=== PATIENT | male | born 1960 | race Hispanic/Latino ===

== ENCOUNTER 2019-11-18 08:47 | Emergency (ER) | payer OTHER ==
[2019-11-18] MEDS ORDERED: Adacel (T-DAP) 0.5 ML SYRINGE ONE (09:05)
--- NOTE | 2019-11-18 09:16 | RAD ---
EXAM: 3 views of the left index finger HISTORY: Avulsion injury to the tip of the index finger COMPARISON: None FINDINGS: There is no evidence of acute fracture or dislocation. No soft tissue swelling is seen. No degenerative changes are present. No radiopaque foreign body is seen. IMPRESSION: No evidence of acute osseous abnormality.
[2019-11-18] MEDS ORDERED: Bacitracin 1 PK ONE (10:22)
== END 2019-11-18 10:45 | disposition home or self-care (01) ==
LOC: ERS 08:47
DX: S61.301A Unspecified open wound of left index finger with damage to nail, initial encounter (principal); E11.9 Type 2 diabetes mellitus without complications; I10 Essential (primary) hypertension; Z79.84 Long term (current) use of oral hypoglycemic drugs; Z79.899 Other long term (current) drug therapy; W31.89XA Contact with other specified machinery, initial encounter; Y99.0 Civilian activity done for income or pay
CPT/HCPCS: 90471; 90715

== ENCOUNTER 2020-05-25 22:27 | Observation (INO) | payer OTHER ==
--- NOTE | 2020-05-25 22:45 | RAD ---
EXAM: CHEST ONE VIEW HISTORY: Left-sided chest pain. COMPARISON: 01/08/2007. FINDINGS: The cardiac silhouette and pulmonary vasculature are within normal limits. There is an area of increa sed density overlying the right suprahilar region. This may be related to asymmetric irregularity of the first costochondral junction, but a lesion in this region cannot be entirely excluded. Linear densities are again seen at the left lung base likely related to scarring. Degenerative changes are present in the spine. IMPRESSION: Area of mild increased density in the right suprahilar region which is felt to be related to asymmetr ic prominence of the first anterior costochondral junction, but overlying lesion cannot be entirely excluded. Follow-up PA and lateral chest x-ray is recommended.
[2020-05-25] MEDS ORDERED: Nitroglycerin 2% Ointment 1 INCH/1 GM Packet ONE ×2 (23:08→23:10)
[2020-05-25] MEDS ORDERED: Nitroglycerin 0.4 MG TAB 1 EACH ONE (23:08)
[2020-05-25] MEDS ORDERED: Labetalol HCl 100 MG/20 ML VIAL ONE (23:10)
[2020-05-25 23:29] LABS: Hemoglobin 17.9 g/dL (14.0-18.0); Mean Corpuscular HGB CONC 35.5 g/dL (32.0-36.0); Mean Corpuscular Hemoglobin 33.5 pg (27.0-31.0); Mean Corpuscular Volume 94.5 fL (78.0-98.0); RBC Distribution Width 11.6 % (11.5-14.5); Red Blood Cell (RBC) Count 5.34 mill/uL (4.70-6.10); White Blood Cell (WBC) Count 3.9 thou/uL (4.8-10.8)
[2020-05-25 23:41] LABS: #Eosinphils 0.1 thou/uL (0.0-0.7); #Lymphocytes 1.2 thou/uL (1.20-3.40); #Monocytes 0.4 thou/uL (0.11-0.59); #Neutrophils 2.2 thou/uL (1.40-6.50); %Basophils 0.5 % (0.0-1.0); %Lymphocytes 29.3 % (21.0-51.0); %Monocytes 10.5 % (0.0-10.0); %Neutrophils 56.6 % (42.0-75.0); Mean Platelet Volume 6.5 fL (7.4-10.4); Platelet Count 113 thou/uL (130-400); Platelet Morphology Comment Appears Decreased
[2020-05-25 23:49] LABS: ALT (SGPT) 41 U/L (8-55); AST (SGOT) 42 U/L (5-34); Albumin 4.3 g/dL (3.5-5.0); Alkaline Phosphatase 141 U/L (40-110); Anion Gap 15 mmol/L (10-20); BUN (Urea Nitrogen) 8 mg/dL (8.4-25.7); Bilirubin, Total 1.1 mg/dL (0.2-1.2); CK (CPK) 171 U/L (30-200); Calc. Creatinine Clearance 0 mL/min (70-130); Calcium 9.9 mg/dL (7.8-10.44); Carbon Dioxide 30 mmol/L (22-29); Chloride 95 mmol/L (98-107); Globulin 4.6 g/dL (2.4-3.5); Glucose 255 mg/dL (70-105); Potassium 3.7 mmol/L (3.5-5.1); Protein, Total 8.9 g/dL (6.0-8.3); Sodium 136 mmol/L (136-145)
[2020-05-26] MEDS ORDERED: Aspirin 325 MG TAB ONE (00:12)
--- NOTE | 2020-05-26 00:19 | PDOC.HHP ---
Hospitalist HPI - History of Present Illness History of Present Illness: ADMISSION DATE: 05/26/2020 TIME OF ASSESSMENT:0030 PRIMARY CARE PHYSICIAN: None CHIEF COMPLAINT: Chest pain HPI: The patient is a 60-year-old male with past medical history significant for diabetes mellitus type 2 and hypertension. Patient has not had any healthcare in the past 4 years. He states that he is awake this morning at 0300 and began to have left-sided chest pain. He denies shortness of breath, diaphoresis, fever, contact with sick persons. He states that when the pain would occur he would walk around to help relieve it. No medications were tried at home. The pain waxed and waned throughout the day and felt like a stabbing pressure to his left side chest. Patient states that when he got to the ER and his blood pressure began to come down after medications the chest pain went away completely. He states that he has no pain at this time. ED COURSE: Vital Signs: VITAL SIGNS [facility] May 25, 2020 22:28 WERNER Salter Catherine BP: 225/106, Pulse: 83, Resp: 18, Temp: 98.4 (Oral), Pain: 5, O2 sat: 99 on (Room Air), Time: 05/25/2020 22:28. VITAL SIGNS [facility] May 25, 2020 23:15 WERNER Barraza Shelley BP: 196/90 (Manual BP), Pulse: 81, Resp: 25, Pain: 5, O2 sat: 98 on (Room Air), Time: 05/25/2020 23:15. VITAL SIGNS [facility] May 25, 2020 23:21 WERNER Barraza Shelley BP: 160/94, MAP: 116, Pulse: 93, Resp: 22, Pain: 2, O2 sat: 96 on (Room Air), Time: 05/25/2020 23:21. VITAL SIGNS [facility] May 25, 2020 23:25 WERNER Barraza Shelley BP: 134/84, MAP: 102, Pulse: 82, Resp: 25, Pain: 2, O2 sat: 96 on (Room Air), Time: 05/25/2020 23:25. VITAL SIGNS FriMay 26, 2020 00:00 WERNER Barraza Shelley BP: 149/90, MAP: 109, Pulse: 76, Resp: 20, Temp: 98.7 (Oral), Pain: 0, O2 sat: 96 on (Room Air), Time: 05/26/2020 00:00. Today in the ER they completed lab work, EKG, chest x-ray. He was administered aspirin 325 mg oral, labetalol 20 mg IV, nitro 1 inch topical, nitro 0.4 mg sublingual. PAST MEDICAL HISTORY: Diabetes mellitus type 2, hypertension PAST SURGICAL HISTORY: No surgical history SOCIAL HISTORY: Patient is a daily drinker of 6-8 beers per day. Denies drug use, denies tobacco use. FAMILY HISTORY: Denies significant family history ALLERGIES: No known drug allergies CURRENT MEDICATIONS: No current home medications Hospitalist ROS - Review of Systems Cardiovascular: reports: chest pain All other systems reviewed; all pertinent +/- noted in HPI/Subj - Exam General Appearance: NAD, awake alert Eye: PERRL Neck: supple Heart: RRR, no murmur, no gallops, no rubs, normal peripheral pulses Respiratory: CTAB, no wheezes, no rales, no ronchi, normal chest expansion Gastrointestinal: soft, non-tender, non-distended, normal bowel sounds Extremities: no edema Neurological: no focal deficits Musculoskeletal: normal tone, normal strength, no muscle wasting Psychiatric: normal affect, normal behavior, A&O x 3 Hospitalist Results - Labs Result Diagrams: 05/25/20 23:11 05/25/20 23:11 Lab results: WBC 3.9 thou/uL (4.8-10.8) L 05/25/20 23:11 Hgb 17.9 g/dL (14.0-18.0) 05/25/20 23:11 Hct 50.5 % (42.0-52.0) 05/25/20 23:11 MCV 94.5 fL (78.0-98.0) 05/25/20 23:11 Plt Count 113 thou/uL (130-400) L 05/25/20 23:11 Neutrophils % 56.6 % (42.0-75.0) 05/25/20 23:11 Sodium 136 mmol/L (136-145) 05/25/20 23:11 Potassium 3.7 mmol/L (3.5-5.1) 05/25/20 23:11 Chloride 95 mmol/L (98-107) L 05/25/20 23:11 Carbon Dioxide 30 mmol/L (22-29) H 12/31/20 23:11 BUN 8 mg/dL (8.4-25.7) L 05/25/20 23:11 Creatinine 0.84 mg/dL (0.7-1.3) 05/25/20 23:11 Glucose 255 mg/dL (70-105) H 05/25/20 23:11 Calcium 9.9 mg/dL (7.8-10.44) 05/25/20 23:11 Total Bilirubin 1.1 mg/dL (0.2-1.2) 05/25/20 23:11 AST 42 U/L (5-34) H 05/25/20 23:11 ALT 41 U/L (8-55) 05/25/20 23:11 Alkaline Phosphatase 141 U/L (40-110) H 05/25/20 23:11 Creatine Kinase 171 U/L (30-200) 05/25/20 23:11 Troponin I Less than 0.010 ng/mL (< 0.028) 05/25/20 23:11 B-Natriuretic Peptide 12.0 pg/mL (0-100) 05/25/20 23:11 Serum Total Protein 8.9 g/dL (6.0-8.3) H 05/25/20 23:11 Albumin 4.3 g/dL (3.5-5.0) 05/25/20 23:11 - EKG Interpretation EKG: Sinus rhythm 75 bpm - Radiology Interpretation Chest x-ray Status: image reviewed by me, report reviewed by me Additional Comment: IMPRESSION: Area of mild increased density in the right suprahilar region which is felt to be related to asymmetric prominence of the first anterior costochondral junction, but overlying lesion cannot be entirely excluded. Follow-up PA and lateral chest x-ray is recommended. Hospitalist H&P A/P - Plan Plan: Chest pain Monitor on telemetry Continue to trend troponins If troponins remain negative plan for stress test in a.m. TSH and magnesium level in a.m. Hypertensive emergency Continue monitor vital signs every 4 hours As needed antihypertensives available Diabetes mellitus type 2 Hemoglobin A1c Monitor Accu-Cheks AC at bedtime Daily alcohol use Initiate ASE protocol VTE prophylaxis in place with SCDs CODE STATUS: Full Patient surrogate decision-maker is his , Dulce Maria Kraft
[2020-05-26 02:08] LABS: Troponin I 0.019 ng/mL (< 0.028)
[2020-05-26 02:46] VITALS: BMI 26.6
[2020-05-26 04:43] LABS: Troponin I 0.021 ng/mL (< 0.028)
[2020-05-26] MEDS ORDERED: Nitroglycerin 2% Ointment 1 INCH/1 GM Packet TOP SCH (06:00)
[2020-05-26] MEDS ORDERED: hydrALAZINE 20 MG/ML VIAL SLOW IVP PRN (07:55)
[2020-05-26] MEDS ORDERED: Acetaminophen 500 MG TAB PO PRN (07:55)
[2020-05-26] MEDS ORDERED: Labetalol HCl 100 MG/20 ML VIAL SLOW IVP PRN (07:55)
[2020-05-26] MEDS ORDERED: Aspirin 325 MG TAB PO SCH (08:00)
[2020-05-26] MEDS ORDERED: Dextrose 5% in Water 1,000 ML IV PRN (08:14)
[2020-05-26] MEDS ORDERED: HumaLOG 300 UNITS/3 ML VIAL SC PRN (08:14)
[2020-05-26] MEDS ORDERED: Dextrose 50% Abboject 50 ML SYRINGE SLOW IVP PRN (08:14)
[2020-05-26 08:56] LABS: SARS-CoV-2 MS2 Positive; SARS-CoV-2 N Gene Negative; SARS-CoV-2 S Gene Negative; SARS-CoV-2 by NAA Not Detected (NotDetected); SARS-CoV-2 orf1ab Negative
[2020-05-26] MEDS ORDERED: Lisinopril 10 MG TAB PO SCH (09:00)
[2020-05-26] MEDS ORDERED: FLU VACC QS2020-21(6MOS UP)/PF 60 MCG/0.5 ML SYRINGE IM ONE (09:00)
[2020-05-26] MEDS ORDERED: Aspirin 325 mg Enteric Coated Tablet PO SCH (09:00)
[2020-05-26] MEDS: Insulin Glargine 15 UNITS in Pre-Filled Syringe 1 EACH SC SCH ×2 (09:59→13:40)
--- NOTE | 2020-05-26 15:26 | NM ---
EXAM: NM Cardiac Stress W EF WF PROVIDED CLINICAL HISTORY: Chest pain. Hypertension and diabetes mellitus. COMPARISON: None FINDINGS: This examination was performed as an exercise stress myocardial perfusion study following the routine Caden protocol. The resting heart rate is 74 bpm with maximal heart rate of 157 bpm which is 96% of the maximal predicted affective heart rate. There is normal uptake and distribution of radiotracer seen throughout the left ventricular myocardiu m on the stress acquisition. No reversible defect is identified. Quantitative analysis shows no significant reversible defect. Gated images demonstrate normal ventricular wall thickening. Mild hypo kinesis at the septum is present. The calculated left ventricular ejection fraction is 65%. IMPRESSION: 1. Normal myocardial perfusion study without evidence of a reversible defect seen to suggest ischemia . 2. Mild hypokinesis at the septum. 3. LVEF of 65%.
--- NOTE | 2020-05-26 16:50 | DIS ---
DATE OF ADMISSION: 05/26/2020 DATE OF DISCHARGE: 05/26/2020 DISCHARGE DISPOSITION: To home. PRIMARY DISCHARGE DIAGNOSIS: Chest pain, which is noncardiac. SECONDARY DISCHARGE DIAGNOSIS: 1. Hypertensive urgency, resolved. 2. Diabetes mellitus type 2, uncontrolled due to noncompliance with medication. PROCEDURES DONE DURING HOSPITALIZATION: The patient had a chest x-ray done, which showed increased density in the right suprahilar region, which is felt to be related to asymmetric prominence of the first anterior costochondral junction. No acute infiltrate was seen. Nuclear stress test done, showed no reversible ischemia. Ejection fraction of 65%. H and H 17 and 50, platelet count is 113, MCV is 94. BUN 8, creatinine 0.8. Troponin x3 negative. BNP 12. Serum glucose 255. COVID-19 PCR not detected. DISCHARGE MEDICATIONS: 1. Glipizide 5 mg p.o. daily. 2. Metoprolol 25 mg p.o. twice daily. 3. Lisinopril 10 mg p.o. daily. DISCHARGE PLAN: The patient is advised to check fingerstick glucose daily, blood pressure and pulse twice daily and record to [place] BRIEF COURSE DURING HOSPITALIZATION: The patient initially came in with complaints of chest pain. He had known history of diabetes and hypertension, for which he has not been taking any medication. In view of significant risk factors, the patient was placed under observation on telemetry. Three sets of troponin were negative. Nuclear stress test done, showed no reversible ischemia. He has remained chest pain- free, ambulating and eating well prior to discharge. I have given complete updates to the patient and his at bedside. Please note, I have seen and examined the patient on the day of discharge. The patient has been counseled regarding medication and dietary compliance for heart healthy, 1800 kilocalorie diet. Job ID: [id number]
[2020-05-26 17:16] VITALS: BP 154/84; TEMP 98.1
== END 2020-05-26 18:00 | disposition home or self-care (01) ==
LOC: ERS 22:27 → 2NO 05-26 00:04
PROVIDERS: ADMIT Internal Medicine; ATTEND Internal Medicine
DX: R07.89 Other chest pain (principal); I16.0 Hypertensive urgency; I10 Essential (primary) hypertension; E11.9 Type 2 diabetes mellitus without complications; Z91.14 Patient's other noncompliance with medication regimen; Z20.822 Contact with and (suspected) exposure to COVID-19
CPT/HCPCS: 36415; 36416; 71045; 78452; 80053; 82550; 83880; 84484; 85025; 87635; 93005; 93017; 94760; 96374; A9500; G0378; J1815; U0003